=== PATIENT | female | born 1995 | race Caucasian/White ===

== ENCOUNTER 2024-01-13 17:44 | Emergency (ER) | payer OTHER ==
[2024-01-13 18:06] VITALS: BP 111/72; PULSE 83; RESP 18; TEMP 98.6; BMI 21.7
== END 2024-01-13 22:42 | disposition left against medical advice (07) ==
LOC: JER 17:44
DX: Z53.21 Procedure and treatment not carried out due to patient leaving prior to being seen by health care provider (principal)
CPT/HCPCS: 93005; 93010; 99281-25